=== PATIENT | female | born 1955 | race Caucasian/White ===

== ENCOUNTER 2017-06-29 14:19 | Emergency (ER) | payer OTHER, MEDICARE ==
[~2017-06-29] VITALS: Ht 162.6 cm; Wt 75.0 kg
[2017-06-29 14:21] VITALS: BP 129/79; PULSE 89; RESP 18; TEMP 98.9; O2SAT 98
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
[2017-06-29] MEDS ORDERED: CLON0.5T PO (16:08)
[2017-06-29] MEDS ORDERED: OXYC-395 PO (16:08)
[2017-06-29] MEDS ORDERED: FENT12DI T-DERMAL (16:08)
[2017-06-29] MEDS ORDERED: PROZ20CA11 PO (16:08)
--- NOTE | 2017-06-29 16:10 | RADRPT ---
EXAM DATE/TIME: 06/29/2017 15:44 [facility] COMPARISON: No previous studies available for comparison. INDICATIONS : Chest pain. MEDICAL HISTORY : Osteoarthritis. Interstitial cystitis. SURGICAL HISTORY : Laminectomy. Cervical spine. ENCOUNTER: Initial ACUITY: 1 day PAIN SCORE: 7/10 LOCATION: Left chest FINDINGS: A single view of the chest demonstrates the lungs to be symmetrically aerated without evidence of mas s, infiltrate or effusion. The cardiomediastinal contours are unremarkable. Osseous structures are intact. CONCLUSION: No acute disease. Lion Anderson Jr., MD on June 29, 2017 at 16:08 Board Certified Radiologist. This report was verified electronically.
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
[2017-06-29 18:46] LABS: AUTOMATED NEUTROPHIL # 5.5 TH/MM3 (1.8-7.7); BASOPHIL % 0.4 % (0.0-2.0); EOSINOPHIL # 0.1 TH/MM3 (0-0.4); EOSINOPHIL % 0.9 % (0.0-4.0); HEMATOCRIT 41.6 % (35.0-46.0); HEMOGLOBIN 14.5 GM/DL (11.6-15.3); LYMPH % 26.6 % (9.0-44.0); LYMPHOCYTE # 2.3 TH/MM3 (1.0-4.8); MEAN CELL VOLUME 94.2 FL (80.0-100.0); MEAN CORPUSCULAR HEMOGLOBIN 32.8 PG (27.0-34.0); MEAN CORPUSCULAR HGB CONC 34.8 % (32.0-36.0); MEAN PLATELET VOLUME 8.5 FL (7.0-11.0); MONO % 8.2 % (0.0-8.0); MONOCYTE # 0.7 TH/MM3 (0-0.9); NEUT % 63.9 % (16.0-70.0); PLATELET COUNT 250 TH/MM3 (150-450); RED BLOOD COUNT 4.42 MIL/MM3 (4.00-5.30); RED CELL DISTRIBUTION WIDTH 12.3 % (11.6-17.2); WHITE BLOOD COUNT 8.6 TH/MM3 (4.0-11.0)
[2017-06-29 18:48] LABS: CALCIUM 9.1 MG/DL (8.5-10.1); CREATININE 0.8 MG/DL (0.50-1.00)
[2017-06-29 19:10] VITALS: BP 123/55; PULSE 66; RESP 20; O2SAT 96
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
--- NOTE | 2017-06-29 22:08 | PD ---
Data Data Last Documented VS Vital Signs Date Time Temp Pulse Resp B/P (MAP) Pulse Ox O2 Delivery O2 Flow Rate FiO2 06/29/17 19:10 66 20 123/55 (77) 96 Room Air 06/29/17 14:21 98.9 Orders Orders Electrocardiogram (06/29/17 15:43) Chest, Single Ap (06/29/17 15:43) Spine, Cervical - Ltd (Ap&Lat) (06/29/17 16:15) D-Dimer (06/29/17 16:39) Iv Access Insert/Monitor (06/29/17 18:06) Complete Blood Count With Diff (06/29/17 18:06) Basic Metabolic Panel (Bmp) (06/29/17 18:06) Ventilation & Perfusion Scan (06/29/17 ) Diet Regular Basic (06/29/17 Dinner) Labs Laboratory Tests Test 06/29/17 16:50 06/29/17 18:20 D-Dimer Quantitative (PE/DVT) 1.15 MG/L FEU White Blood Count 8.6 TH/MM3 Red Blood Count 4.42 MIL/MM3 Hemoglobin 14.5 GM/DL Hematocrit 41.6 % Mean Corpuscular Volume 94.2 FL Mean Corpuscular Hemoglobin 32.8 PG Mean Corpuscular Hemoglobin Concent 34.8 % Red Cell Distribution Width 12.3 % Platelet Count 250 TH/MM3 Mean Platelet Volume 8.5 FL Neutrophils (%) (Auto) 63.9 % Lymphocytes (%) (Auto) 26.6 % Monocytes (%) (Auto) 8.2 % Eosinophils (%) (Auto) 0.9 % Basophils (%) (Auto) 0.4 % Neutrophils # (Auto) 5.5 TH/MM3 Lymphocytes # (Auto) 2.3 TH/MM3 Monocytes # (Auto) 0.7 TH/MM3 Eosinophils # (Auto) 0.1 TH/MM3 Basophils # (Auto) 0.0 TH/MM3 CBC Comment DIFF FINAL Differential Comment Blood Urea Nitrogen 13 MG/DL Creatinine 0.80 MG/DL Random Glucose 93 MG/DL Calcium Level 9.1 MG/DL Sodium Level 137 MEQ/L Potassium Level 4.1 MEQ/L Chloride Level 105 MEQ/L Carbon Dioxide Level 26.0 MEQ/L Anion Gap 6 MEQ/L Estimat Glomerular Filtration Rate 73 ML/MIN [facility] Supervised Visit with SCOTT: Yes Narrative Course Is a 62 year-old woman, initial seen by REBEKAH Dillon, and Dr. Elizondo, with pleuritic chest wall pain, thought to be musculoskeletal, with VQ scan pending to rule out PE. LABS: Unremarkable Chest x-ray: Unremarkable VQ scan: Low probability Recommend supportive treatment and outpatient follow-up, likely muscle skeletal chest wall pain. Diagnosis Primary Impression: Musculoskeletal chest pain Referrals: Primary Care Physician Patient Instructions: General Instructions, Musculoskeletal Pain (ED) Additional Instruction: Rest, hydrate. Returned to normal, gentle activities as tolerated. Continue with her at home pain medications as prescribed. Disposition: 01 DISCHARGE HOME Condition: Stable Delgado Moody MD Jun 29, 2017 22:08
--- NOTE | 2017-06-30 13:36 | EKG ---
Date Performed: 06/29/2017 Time Performed: 16:01:38 PTAGE: 62 years EKG: Sinus rhythm NORMAL ECG NO PREVIOUS TRACING DOCTOR: Erik Cervantes Interpretating Date/Time 06/30/2017 13:35:43
--- NOTE | 2017-06-30 13:36 | EKG ---
Date Performed: 06/29/2017 Time Performed: 16:01:38 PTAGE: 62 years EKG: Sinus rhythm NORMAL ECG NO PREVIOUS TRACING DOCTOR: Erik Cervantes Interpretating Date/Time 06/30/2017 13:35:43
--- NOTE | 2017-06-30 13:36 | EKG ---
Date Performed: 06/29/2017 Time Performed: 16:01:38 PTAGE: 62 years EKG: Sinus rhythm NORMAL ECG NO PREVIOUS TRACING DOCTOR: Erik Cervantes Interpretating Date/Time 06/30/2017 13:35:43
== END 2017-06-29 23:38 | disposition home or self-care (01) ==
LOC: NEPD 14:19
DX: R07.89 Other chest pain (principal)
CPT/HCPCS: 71010; 72040; 78582; 80048; 85025; 85379; 93005; 99285; A9540; A9567